=== PATIENT | male | born 1980 | race Caucasian/White ===

== ENCOUNTER → 2023-10-23 14:47 | Outpatient (REF) | payer OTHER, SELFPAY | LOC: HWRAD 14:47 | PROVIDERS: ATTENDING PHYSICIAN Surgery; FAMILY PHYSICIAN Physician Assistant | DX: K42.9 Umbilical hernia without obstruction or gangrene (principal) | CPT/HCPCS: 74177; Q9967 ==

== ENCOUNTER → 2023-11-11 06:20 | Day surgery (SDC) | payer OTHER, SELFPAY | LOC: SDS 06:20 | PROVIDERS: ATTENDING PHYSICIAN Surgery | DX: K42.9 Umbilical hernia without obstruction or gangrene (principal); Z53.8 Procedure and treatment not carried out for other reasons | CPT/HCPCS: 49591 ==

== ENCOUNTER 2023-11-29 06:23 | Day surgery (SDC) | payer OTHER, SELFPAY ==
[2023-11-29] VITALS (11 sets, daily range): BP systolic 108–150; BP diastolic 69–90; BMI 41.9
[2023-11-29] MEDS: NORMOSOL-R 1000 IV (11:09)
--- NOTE | 2023-11-29 13:30 | OR.RPT ---
Operative Report
Operative Report
Primary Surgeon: Sonja
Assisting: Dwight ORANTES
Pre-op Diagnosis: Incarcerated umbilical hernia
Post-op Diagnosis: Same
Procedure Performed: Robot assisted laparoscopic repair of incarcerated umbilical hernia (rTAPP)
Anesthesia Type: GETA + TAP block
Specimen / Cultures: None
Estimated Blood Loss: 5cc
Complications: None immediate
Operative Findings: 2.5cm defect with incarcerated omentum; 15cm x 15cm bard soft mesh
Operative Findings:� 1cm x 1cm umbilical hernia - 6cm superior to this an epigastric defect 2cm x 1cm with incarcerated fat, [Total hernia size = 8cm]; 15cm x 11cm bard soft mesh
Date of Surgery:� 11/29/23
Indications:� This 43M developed�a symptomatic incarcerated umbilical hernia. Repair was thus indicated and laparoscopic approach was elected.
Description of procedure:� The patient was taken to the operating room and the correct site of surgery was verified. General anesthesia was induced and the patient was placed supine on the operating table with arms tucked.� The patient�s abdomen was
prepped and draped in standard sterile fashion. A time-out was completed verifying correct patient, procedure, site, positioning, and implants and special equipment prior to beginning this procedure. A stab incision was made in the left upper
quadrant, a Veress needle was inserted and proper position was confirmed by aspiration and saline drop test. Following this, pneumoperitoneum was created with insufflation of carbon dioxide to 12 mmHg. Then a 8mm robotic trocar was inserted at the
left anterior axillary line at the level of the umbilicus. A laparoscope was inserted and the area of initial trocar entry and Veress needle placement were both inspected and free of trauma. Two 8mm trocars were then placed a hand's breadth above
and below the initial trocar under direct visualization. The peritoneum was incised above the defect and a flap was developed in transverse and caudad directions using blunt and sharp dissection. The umbilical defect was identified and measured
2.5cm x 2.5cm. Omental contents were manually reduced from the defect.� The defect was closed with 0 PDS stratafix suture.� A 15cm x 15cm bard soft mesh was passed through a trocar. The mesh was moved into position to lay flat against the abdominal
wall, centered on the defect. The mesh was secured into place using 2-0 vicryl suture under the defect and at all four corners as well as residential along each side.� A 2-0 monocryl stratafix was used to close the flap. A large central flap rent was
closed with 2-0 monocryl stratafix suture. A 14g angiocath was used to decompress the preperitoneal space revealing good seal and mesh in good position without folding or curling. A transversus abdominis plane block was performed under laparoscopic
vision using marcaine. After ensuring adequate hemostasis, the trocars were removed and the pneumoperitoneum allowed to escape. The trocar incisions were closed at the skin level using 4-0 monocryl and topical skin adhesive. Abdominal binder was
placed. The patient tolerated the procedure well and was taken to the postanesthesia care unit in stable condition.
[2023-11-29] MEDS: DILAUDID 0.25 MG IV ×2 (14:30→14:53)
== END 2023-11-29 16:08 | disposition home or self-care (01) ==
LOC: SDS 06:23
PROVIDERS: ATTENDING PHYSICIAN Surgery
DX: K42.0 Umbilical hernia with obstruction, without gangrene (principal)
CPT/HCPCS: 49592; C1781